=== PATIENT | male | born 1985 | race Two or more races ===

== ENCOUNTER 2024-07-08 19:27 | Emergency (ER) | payer SELFPAY ==
[~2024-07-08] VITALS: Ht 170.2 cm; Wt 123.0 kg
--- NOTE | 2024-07-08 19:59 | ED.PDOC ---
HPI (NEURO) HPI Comments HPI: Poor Historian. HPI: 38-year-old male presents with a chief complaint of left-sided headache and blurry vision x onset yesterday. Patient states that his symptoms began yesterday and had gone away after taking a nap, however, patient reports that the symptoms returned around 10:00 this morning and has subsided but recurred again later in the day so he decided to come to the ED. Patient is expressing mild blurry vision bilaterally in both eyes and a headache to the left side of his head and neck. Patient denies hitting his head or any injuries prior to onset of symptoms. . Patient mentions that he does get headaches frequently and usually take Aspirin for them, denies seeing a doctor for his headaches. Patient says the headache is associated with some nonspecific chest discomfort needles and pins like sensation. He had at least two prior episodes in the last 24 hours which subsided spontaneously without any intervention. PMHx: Headaches PSHx: Tonsillectomy Triage Vital Signs: Temp: 98.1F BP: 132/90 HR: 69 SpO2: 96% RR: 18 REVIEW OF SYSTEMS: CONSTITUTIONAL: Denies acute: fever, diaphoresis, chills, generalized weakness. HEAD: Denies acute: photophobia Eyes: Denies acute: Double vision, vision loss, eye pain, eye discharge. EARS: Denies acute: tinnitus, hearing loss, ear discharge, ear pain, THROAT: Denies acute: sore throat, swelling, difficulty swallowing , pain with swallowing, change in voice. NECK: Denies acute: neck pain, neck swelling, stiff neck. HEART: Denies acute : palpitations, LUNGS: Denies acute: SOB, wheezing, cough, hemoptysis ABDOMEN: Denies acute: abdominal pain, Nausea, Vomiting, diarrhea, melena , hematemesis, hematochezia SKIN: Denies acute: rash, redness, lesions, itchiness. EXTREMITIES: Denies acute: calf pain, numbness, tingling, weakness, denies pain in extremity. Denies acute: Low back pain. Neuro: Denies acute: focal neurological deficit, motor or sensory focal neurological deficit, tremors, seizure like activity, confusion, dizziness, change in mental status, loss of bowel or bladder function, cauda equina like symptoms. : Denies acute: dysuria, hematuria, flank pain, increase in urinary frequency. PSYCH: Denies acute: hallucination, suicidal ideation, homicidal ideation. PHYSICAL EXAM: General: no acute distress, awake and alert. Head: normocephalic, atraumatic. Neck: supple, trachea is midline, no swelling. Throat: Normal phonation. Eyes:, no erythema, no purulent discharge, no proptosis, no icterus. Heart: regular rate, regular rhythm, no significant murmur appreciated. Lungs: no apparent respiratory distress, Able to speak in full sentences. No wheezing, no rhonchi, no crackles. No stridors Clear to auscultation bilaterally. Abdomen: non tender to palpation, non distended, soft, no guarding, no rebound, + bowel sounds. Neuro: Awake, Alert, oriented to name, self, situation, follows commands GCS=15. Speech is normal. Skin: no petechia, no purpura, no cyanosis, non-pale, not jaundice. Lower extremities: --no - Pitting edema no deformity, no focal swelling, no calf TTP. Makes eye contact. moves all four extremities. Face: no apparent facial droop. Ambulating in the ED independently. Stroke: finger to nose cerebellar testing is intact. No pronator drift. 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 No nystagmus. No nuchal rigidity, Kernig's sign, Brudzinski's sign, no meningeal signs. Time Seen by MD: 19:49 Reviewed Notes: Medications, Allergies Information Source: Patient Mode of Arrival: Ambulatory Past Medical History PAST MEDICAL HISTORY: Denies Surgical History: Tonsillectomy Family History Family History: Reviewed,noncontributory to illness Social History Smoker: Non-Smoker Alcohol: Denies ETOH Use Drugs: Denies Drug Use Lives In: Home Was a procedure done? Was a procedure done?: No Differential Diagnosis (SZ) Seizure: N/A CVA: Ceja's Palsy, CVA, Delirium Tremens, DKA, Drug Overdose, Electrolyte Imbalance, Encephalopathy, Hypoglycemia, Hypoxemia, Mass Lesion, Respiratory Failure, SAH, TIA Headache: Cluster, Migraine, Post Lumber Puncture, Closed Head Injury, Carbon Monoxide Toxicity, CVA, Epidural Hemorrhage, Intracerebral Hemorrhage, Subarachnoid Hemorrhage, Subdural Hemorrhage, Mass Lesion, Meningitis, Post- Traumatic, Sinusitis, Trigeminal Neuralgia, Other (DDX include Sinusitis, migraine, meningitis, hypertension, intracranial mass/bleed, stroke, radiculopathy, vertebrobasillary insufficiency, cephalgia, pseudotumor cerebri, cerebellar ischemia/infarct, carotid stenosis, lacunar infarct, vertebral/carotid artery dissection, hydrocephalus, temporal arteritis, dura venous sinus thrombosis.) X-Ray, Labs, Meds, VS Vital Signs Date Time Temp Pulse Resp B/P (MAP) Pulse Ox O2 Delivery O2 Flow Rate FiO2 07/09/24 01:20 97.9 78 18 120/81 (94) 97 97.9 07/09/24 00:39 97.9 78 16 121/79 (93) 97 97.9 07/09/24 00:05 98.1 69 18 132/90 96 0.0 21 98.1 07/08/24 19:55 98.1 69 18 132/90 (104) 96 07/08/24 19:49 74 Lab Test 07/09/24 00:26 07/08/24 23:08 07/08/24 21:42 07/08/24 20:18 Range/Units Influenza Type A Antigen Negative Negative Influenza Type B Antigen Negative Negative SARS-CoV-2 Antigen (Rapid) Negative NEGATIVE Troponin I High Sensitivity < 3 L < 3 L < 3 L </=54 ng/L Erythrocyte Sedimentation Rate 16 0-20 mm/hr Prothrombin Time 10.5 9.3-11.8 sec Prothrombin Time INR 0.99 0.9-1.15 Activated Partial Thromboplast Time 26.6 24.5-34.5 SEC Sodium Level 139 136-145 mmol/L Potassium Level 4.1 3.5-5.1 mmol/L Chloride Level 102 98-107 mmol/L Carbon Dioxide Level 27 20-31 mmol/L Anion Gap 10 5-15 Blood Urea Nitrogen 10 9-23 mg/dL Creatinine 0.99 0.700-1.30 mg/dL Glomerular Filtration Rate Calc 99 >90 mL/min BUN/Creatinine Ratio 10.1 10.0-20.0 Serum Glucose 87 74-106 mg/dL Calcium Level 10.2 8.7-10.4 mg/dL Magnesium Level 2.5 1.6-2.6 mg/dL Total Bilirubin 0.6 0.2-1.0 mg/dL Aspartate Amino Transferase (AST) 25 13-40 U/L Alanine Aminotransferase (ALT) 50 H 7-40 U/L Alkaline Phosphatase 75 46-116 U/L Total Protein 8.0 5.7-8.2 g/dL Albumin 5.3 H 3.2-4.8 g/dL Test 07/08/24 20:00 07/08/24 19:48 07/08/24 19:47 Range/Units Lactic Acid Level 1.4 0.4-2.0 mmol/L White Blood Count 7.2 4.4-10.8 10^3/uL Red Blood Count 5.24 4.5-5.90 10^6/uL Hemoglobin 15.3 13.5-17.5 g/dL Hematocrit 45.7 41.0-53.0 % Mean Corpuscular Volume 87.2 80.0-100.0 fL Mean Corpuscular Hemoglobin 29.2 28.0-32.0 pg Mean Corpuscular Hemoglobin Concent 33.5 32.0-36.0 g/dL Red Cell Distribution Width 15.0 H 11.8-14.3 % Platelet Count 262 140-450 10^3/uL Mean Platelet Volume 8.3 6.9-10.8 fL Neutrophils (%) (Auto) 51.8 37.0-80.0 % Lymphocytes (%) (Auto) 37.7 10.0-50.0 % Monocytes (%) (Auto) 9.3 0.0-12.0 % Eosinophils (%) (Auto) 1.2 0.0-7.0 % Basophils (%) (Auto) 0.0 0.0-2.0 % Neutrophils # (Auto) 3.7 1.6-8.6 10 ^3/uL Lymphocytes # (Auto) 2.7 0.4-5.4 10 ^3/uL Monocytes # (Auto) 0.7 0-1.3 10 ^3/uL Eosinophils # (Auto) 0.1 0-0.8 10 ^3/uL Basophils # (Auto) 0 0-0.2 10 ^3/uL Nucleated Red Blood Cells 0.1 % POC Glucose 94 70-106 mg/dl PATIENT: MORALESSTUART JHAVERIACCT: [id number]: [id number] : 1985 LOC: ER ROOM / BED: / AGE / SEX: 38 / M ADM STATUS: REG ER SERVICE 53 ORDERING PHYSICIAN: ROHAN BLUE DO PROCEDURE(s): [place] - ANGIO HEAD/Neck REASON: L faustin, neuro complaints, cp ORDER NUMBER(s): [id number], ACCESSION NUMBER(s): [id number] EXAM: CT ANGIO HEAD/NECK CLINICAL HISTORY: L faustin, neuro complaints, cp TECHNIQUE: CT angiogram of the head and neck was performed without and with intravenous contrast. [Contrast Qty] ml of [Contrast] was administered in travenously. 3D MIP reconstructed images were created and archived on the PACS system. This exam was performed according to our departmental dose optimization program. Up-to-date CT equipment and radiation dose reduction techniques are utilized as appropriate. [Radimetrics Exposure Report] COMPARISON: None FINDINGS: CTA head: The ventricles and subarachnoid spaces are normal in size and configuration. The ang white matter interfaces are maintained There is no midline shift or mass effect. There is no evidence of acute intracranial hemorrhage. The basal cisterns are patent. The calvarium is intact. Aneurysmal dilatation of the left supraclinoid ICA with the aneurysm measuring 6.6 x 3.0 mm on series 5 image 198 The distal internal carotid, vertebral, and basilar arteries are patent without focal narrowing or occlusion. The anterior, middle, and posterior cerebral arteries are patent without focal narrowing. No arteriovenous malformation is identified. CTA neck: The aortic arch vessel origins are widely patent. The common carotid and cervical portions of the internal carotid and vertebral arteries are patent without focal narrowing according to NASCET criteria. No aneurysm, AVM, or dissection is identified. The cervical soft tissues are unremarkable. The paranasal sinus and mastoid air cells are clear aside from moderate to marked mucosal thickening of the left maxillary sinus bilateral ethmoid air cells and mild mucosal thickening of the bilateral frontal and right maxillary sinuses. The lung apices are clear. IMPRESSION: 1. No acute intracranial abnormality. 2. Widely patent intracranial arteries without large vessel occlusion, high- grade stenosis, dissection, or AVM. 3. Aneurysm of the left supraclinoid ICA with the aneurysm measuring 6.6 x 3.0 mm. ATED BY: MICHELLE VERA MD DICTATED DATE/TIME: 07/08/242147 SIGNED BY: MICHELLE VERA MD SIGNED DATE/TIME: 07/08/242147 PATIENT: STUART NG ACCT: [id number] UNIT: [id number] : 1985 LOC: ER ROOM / BED: / AGE / SEX: 38 / M ADM STATUS: REG ER SERVICE 53 ORDERING PHYSICIAN: ROHAN BLUE DO PROCEDURE(s): CXRP - CHEST PORTABLE REASON: FAUSTIN, cp ORDER NUMBER(s): [id number], ACCESSION NUMBER(s): [id number] CHEST RADIOGRAPH Indication: FAUSTIN, cp Technique: Single frontal view of the chest was obtained Comparison: None FINDINGS: Lines and Tubes: None Lungs: Minimal bilateral lower lung zone opacities. Pleura: No effusion. No pneumothorax. Cardiomediastinal contours: Unremarkable Bones: No acute osseous abnormality. IMPRESSION: Bilateral lower lung zone atelectasis with early pneumonia not excluded. ATED BY: SHONA SMILEY DO DICTATED DATE/TIME: 07/08/242049 SIGNED BY: SHONA SMILEY DO SIGNED DATE/TIME: 07/08/242049 Time of 1ST Reevaluation: 20:19 Reevaluation 1ST: Unchanged Time of 2ND Reevaluation: 23:18 (The neurologist evaluated the patient at bedside. He recommends transfer the patient to higher level of care for brain aneurysm. Patient has no acute focal neurological deficits accept what is shan cribed in HPI in V2 distribution in the left side. No further recommendation by our neurology team.) Time of 3RD Reevaluation: 00:12 (The case was discussed with the transfer higher level of care team (HPI, physical exam, labs and diagnostic tests that were available at the time of disposition, ED course, treatment plan) on the phone. They agreed to accept the patient to their facility for higher level of care and further evaluation and treatment of the patient's presentation and fin dings. Receiving ER physician is Dr. Holland. ) Patient Education/Counseling: Diagnosis, Treatment Family Education/Counseling: Diagnosis, Treatment Comments states patient has been having multiple headaches in the past but this was never diagnosed before. Patient has complained to his in the past a feels that his brain is swollen. Patient presented with the above HPI.---neurological/cardiac---workup was initiated. patient was found with the above mentioned diagnosis. the following medications were ordered: please refer to order lists of meds and tests obtained by myself Dr. Blue. Patient ED course and VS have been stabilized. Patient has been reassessed in the ED and remained in a stable condition. Pertinent incidental findings were discussed with the patient and/or family. Patient/family voices understanding and is agreeable with plan. Patient has been observed in the ED adequate length of time to insure improvement/stability. Escalation of care considered: Consideration of escalation to observation or admission neurology team was consulted who came and evaluated the patient here in the ED. they recommend transfer the patient to higher level of care. Patient was transferred to higher level of care. All the reports of any imaging studies that were ordered by myself were reviewed by myself. Departure 1 Departure Time of Disposition: 23:05 Impression: Primary Impression: Brain aneurysm Additional Impressions: Headache Chest pain Facial neurological complaint Disposition: 02 SHORT TERM HOSPITAL Admit to: Tele Condition: Guarded Discharged With: Self Critical Care Note Critical Care Time?: Yes (90 min-critical care time only) I personally scribed for ROHAN BLUE DO ([email or web address]) on 07/08/24 at 19:59. Electronically submitted by Chris Jacobs ([email or web address]). I personally scribed for ROHAN BLUE DO ([email or web address]) on 07/08/24 at 22:09. Electronically submitted by Chris Jacobs [email or web address]). ROHAN BLUE DO Jul 08, 2024 19:59
[2024-07-08 20:37] LABS: Basophils # (auto) 0 10 ^3/uL (0-0.2); Eosinophils # (auto) 0.1 10 ^3/uL (0-0.8); Eosinophils % (auto) 1.2 % (0.0-7.0); Hematocrit 45.7 % (41.0-53.0); Hemoglobin 15.3 g/dL (13.5-17.5); Lymphocytes # (auto) 2.7 10 ^3/uL (0.4-5.4); Lymphocytes % (auto) 37.7 % (10.0-50.0); Mean Corpuscular Hemoglobin 29.2 pg (28.0-32.0); Mean Corpuscular Hgb Conc. 33.5 g/dL (32.0-36.0); Mean Corpuscular Volume 87.2 fL (80.0-100.0); Monocytes # (auto) 0.7 10 ^3/uL (0-1.3); Monocytes % (auto) 9.3 % (0.0-12.0); Neutrophils # (auto) 3.7 10 ^3/uL (1.6-8.6); Neutrophils % (auto) 51.8 % (37.0-80.0); Nucleated Red Blood Cells % 0.1 %; Platelet Count (auto) 262 10^3/uL (140-450); Red Blood Cells 5.24 10^6/uL (4.5-5.90); White Blood Cell 7.2 10^3/uL (4.4-10.8)
--- NOTE | 2024-07-08 20:52 | DVH ---
CHEST RADIOGRAPH Indication: FAUSTIN, cp Technique: Single frontal view of the chest was obtained Comparison: None FINDINGS: Lines and Tubes: None Lungs: Minimal bilateral lower lung zone opacities. Pleura: No effusion. No pneumothorax. Cardiomediastinal contours: Unremarkable Bones: No acute osseous abnormality. IMPRESSION: Bilateral lower lung zone atelectasis with early pneumonia not excluded.
[2024-07-08 20:53] LABS: Alkaline Phosphatase 75 U/L (46-116); Anion Gap 10 (5-15); Aspartate Aminotransferase 25 U/L (13-40); BUN/Creatinine Ratio 10.1 (10.0-20.0); Blood Urea Nitrogen 10 mg/dL (9-23); Calcium 10.2 mg/dL (8.7-10.4); Carbon Dioxide 27 mmol/L (20-31); Chloride 102 mmol/L (98-107); Glucose 87 mg/dL (74-106); Magnesium 2.5 mg/dL (1.6-2.6); Potassium 4.1 mmol/L (3.5-5.1); Sodium 139 mmol/L (136-145)
[2024-07-08 20:54] LABS: Bilirubin, Total 0.6 mg/dL (0.2-1.0)
[2024-07-08 20:55] LABS: INR 0.99 (0.9-1.15); Partial Thromboplastin Time 26.6 SEC (24.5-34.5); Prothrombin Time 10.5 sec (9.3-11.8)
[2024-07-08 21:04] LABS: Alanine Aminotransferase 50 U/L (7-40); Albumin 5.3 g/dL (3.2-4.8)
[2024-07-08] MEDS ORDERED: cefTRIAXone 1GM/50ML D5W 50 ML IV ONE (21:15)
[2024-07-08 21:36] LABS: Erythrocyte Sedimentation Rate 16 mm/hr (0-20)
--- NOTE | 2024-07-08 21:50 | DVH ---
EXAM: CT ANGIO HEAD/NECK CLINICAL HISTORY: L campbell, neuro complaints, cp TECHNIQUE: CT angiogram of the head and neck was performed without and with intravenous contrast. [Co ntrast Qty] ml of [Contrast] was administered intravenously. 3D MIP reconstructed images were created and archived on the PACS system. This exam was performed according to our departmental dose optimiza tion program. Up-to-date CT equipment and radiation dose reduction techniques are utilized as appropr iate. [Radimetrics Exposure Report] COMPARISON: None FINDINGS: CTA head: The ventricles and subarachnoid spaces are normal in size and configuration. The ang white matter in terfaces are maintained There is no midline shift or mass effect. There is no evidence of acute intra cranial hemorrhage. The basal cisterns are patent. The calvarium is intact. Aneurysmal dilatation of the left supraclinoid ICA with the aneurysm measuring 6.6 x 3.0 mm on series 5 image 198 The distal internal carotid, vertebral, and basilar arteries are patent without focal na rrowing or occlusion. The anterior, middle, and posterior cerebral arteries are patent without focal narrowing. No arteriovenous malformation is identified. CTA neck: The aortic arch vessel origins are widely patent. The common carotid and cervical portions of the int ernal carotid and vertebral arteries are patent without focal narrowing according to NASCET criteria. No aneurysm, AVM, or dissection is identified. The cervical soft tissues are unremarkable. The paranasal sinus and mastoid air cells are clear aside from moderate to marked mucosal thickening of the left maxillary sinus bilateral ethmoid air cells a nd mild mucosal thickening of the bilateral frontal and right maxillary sinuses. The lung apices are clear. IMPRESSION: 1. No acute intracranial abnormality. 2. Widely patent intracranial arteries without large vessel occlusion, high-grade stenosis, dissectio n, or AVM. 3. Aneurysm of the left supraclinoid ICA with the aneurysm measuring 6.6 x 3.0 mm.
--- NOTE | 2024-07-08 22:36 | DVHINCON2 ---
Date of service: Jul 08, [address] Barcenas Reason for Consultation Neuro complaints History of Present Illness Mr. Urban Jasso is a 38 years old right-handed gentleman with a history of obesity, but otherwise healthy. He came to the hospital on 07/08/2024 with a chief company of blurry vision. At this time, he is alert and fully oriented, but he is not a good historian, with his bilingual girlfriend help, I obtained the following history On 07/07/2024, the patient was developed blurry vision in whole visual field, which one eye covered it was time, he noticed the blurred vision was bilateral, with the left eye more affected; around 11:00 a.m. on 07/08/2024, he developed double vision lasted for about 10 minutes, and then later, the vision blurry problem resolved Since the afternoon on 07/07/2024, he developed constant numbness in the left infraorbital region, the problem still persists In the afternoon of 07/07/24, he developed numbness in left arm, the problem resolved in the later afternoon on 07/08/2024 Since 07/07/2024, he has general weakness He was reports pressure feeling in the chest He snores, his girlfriend reports symptoms of sleep apnea, he was not always refreshed on waking up in the morning, he sometimes has excessive sleepiness and fatigue during the daytime CBC, 07/08/2024: Unremarkable ESR, 07/08/2019 5:16 a.m. CMP, 07/08/2024: Unremarkable Chest x-ray, 07/08/2024: Bilateral lower lung zone atelectasis with early pneumonia not excluded.ilateral lower lung zone atelectasis with early pneumonia not excluded. CT head, neck, 07/08/2024: 1. No acute intracranial abnormality. 2. Widely patent intracranial arteries without large vessel occlusion, high-grade stenosis, dissection, or AVM. 3. Aneurysm of the left supraclinoid ICA with the aneurysm measuring 6.6 x 3.0 mm Past Medical History Obesity, he denies a history of hypertension, diabetes or other major medical problems Past Surgical History Tonsillectomy Family History No major medical problems Social History He does not smoke, no history of alcohol or recreational substance abuse Allergies: Coded Allergies: No Known Drug Allergy (Verified Allergy, Unknown, 07/08/24) Review of Systems As above, the other systems are negative Vital Signs Vital Signs Date Time Temp Pulse Resp B/P (MAP) Pulse Ox O2 Delivery O2 Flow Rate FiO2 07/08/24 19:55 98.1 69 18 132/90 (104) 96 Physical Exam GENERAL EXAM: General: the patient is well developed and nourished. No acute distress. HEENT: Normocephalic, neck is supple, no carotid bruits. No mass. RESPIRATORY: Normal respiratory effort with symmetrical lung expansion. Lungs clear to auscultation. CARDIOVASCULAR: Regular rate and rhythm with no murmurs. S1, S2. ABDOMEN: Soft, nontender, normal bowel sound NEUROLOGICAL: MENTAL STATUS: Awake and alert. Oriented to person, place, time and general circumstances. Poor historian SPEECH, LANGUAGE, HIGHER CORTICAL FUNCTION: no aphasia or dysathria. CRANIAL NERVES: #2: Intact visual yousif to confrontation. The optic discs were sharp. #3,4,6: Pupils are equal, round and reactive. EOMs full and conjugate. No nystagmus. #5: Diminished pinprick and light touch in the small area in the left infraorbital region. Mandibular strength intact. #7: Facial muscles symmetrical and strength intact. #8: Hearing grossly normal to voice. #9,10: Uvula and soft palate rise in the midline. Swallow and voice are normal. #11: Trapezius and sternomastoid strength intact bilaterally. #12: Tongue midline. No fasciculations or atrophy. SENSATION: Sensation to touch and pinprick is normal. MOTOR: Normal tone in the upper and lower extremity. Normal muscle bulk. No fasciculations. No abnormal movements or posturing. Muscle strength of the major groups in the upper extremities is 5/5. Muscle strength of the major groups in the lower extremities is 5/5. REFLEXES: Deep tendon reflexes normal and symmetrical. No pathological reflexes. CEREBELLAR/COORDINATION: Finger to nose and heel to carbone are normal bilaterally. GAIT/STATION: Unremarkable Labs/Diagnostic Data Labs Test 07/08/24 21:42 07/08/24 20:18 07/08/24 20:00 07/08/24 19:48 Range/Units Erythrocyte Sedimentation Rate 16 0-20 mm/hr Prothrombin Time 10.5 9.3-11.8 sec Prothrombin Time INR 0.99 0.9-1.15 Activated Partial Thromboplast Time 26.6 24.5-34.5 SEC Sodium Level 139 136-145 mmol/L Potassium Level 4.1 3.5-5.1 mmol/L Chloride Level 102 98-107 mmol/L Carbon Dioxide Level 27 20-31 mmol/L Anion Gap 10 5-15 Blood Urea Nitrogen 10 9-23 mg/dL Creatinine 0.99 0.700-1.30 mg/dL Glomerular Filtration Rate Calc 99 >90 mL/min BUN/Creatinine Ratio 10.1 10.0-20.0 Serum Glucose 87 74-106 mg/dL Calcium Level 10.2 8.7-10.4 mg/dL Magnesium Level 2.5 1.6-2.6 mg/dL Total Bilirubin 0.6 0.2-1.0 mg/dL Aspartate Amino Transferase (AST) 25 13-40 U/L Alanine Aminotransferase (ALT) 50 H 7-40 U/L Alkaline Phosphatase 75 46-116 U/L Total Protein 8.0 5.7-8.2 g/dL Albumin 5.3 H 3.2-4.8 g/dL Lactic Acid Level 1.4 0.4-2.0 mmol/L White Blood Count 7.2 4.4-10.8 10^3/uL Red Blood Count 5.24 4.5-5.90 10^6/uL Hemoglobin 15.3 13.5-17.5 g/dL Hematocrit 45.7 41.0-53.0 % Mean Corpuscular Volume 87.2 80.0-100.0 fL Mean Corpuscular Hemoglobin 29.2 28.0-32.0 pg Mean Corpuscular Hemoglobin Concent 33.5 32.0-36.0 g/dL Red Cell Distribution Width 15.0 H 11.8-14.3 % Platelet Count 262 140-450 10^3/uL Mean Platelet Volume 8.3 6.9-10.8 fL Neutrophils (%) (Auto) 51.8 37.0-80.0 % Lymphocytes (%) (Auto) 37.7 10.0-50.0 % Monocytes (%) (Auto) 9.3 0.0-12.0 % Eosinophils (%) (Auto) 1.2 0.0-7.0 % Basophils (%) (Auto) 0.0 0.0-2.0 % Neutrophils # (Auto) 3.7 1.6-8.6 10 ^3/uL Lymphocytes # (Auto) 2.7 0.4-5.4 10 ^3/uL Monocytes # (Auto) 0.7 0-1.3 10 ^3/uL Eosinophils # (Auto) 0.1 0-0.8 10 ^3/uL Basophils # (Auto) 0 0-0.2 10 ^3/uL Nucleated Red Blood Cells 0.1 % Test 07/08/24 19:47 Range/Units POC Glucose 94 70-106 mg/dl Assessment This is a difficult consultation Paresthesia/sensory loss in the left infraorbital region, etiology unclear, needs to rule out intracranial acute pathology Sleep-related breathing disorder Obesity Acute General weakness Brain aneurysm Plan/Recommendation Monitoring Supportive treatment Telemetry UDS Lipitor profile Echocardiogram MRI head APAP in the hospital Higher level care Re: Brain aneurysm He has been advised to look for a family doctor for ongoing medical care Lifestyle discussed Prognosis: Poor This medical document was created using an electronic medical record system with [employer] computerized dictation system. Although this document has been carefully reviewed, there may still be some phonetic and typographical errors. These areas are purely typographical due to imperfections of the software programs, and do not reflect any compromise in the patient's medical care. Plan discussed with: Patient, Spouse, Other GARO ROBLERO MD Jul 08, 2024 22:36
[2024-07-09 00:05] VITALS: BP 132/90; PULSE 69; RESP 18; TEMP 98.1; O2SAT 96
[2024-07-09] MEDS: IOHEXOL 350 MG/ML 100ML IJ ONE (00:17)
[2024-07-09 01:20] VITALS: BP 120/81; PULSE 78; RESP 18; TEMP 97.9; O2SAT 97
[2024-07-09 01:23] LABS: Rapid Influenza A Negative (Negative); Rapid Influenza B Negative (Negative)
[2024-07-09 01:24] LABS: COVID19 ANTIGEN SOFIA FIA NEGATIVE (NEGATIVE)
--- NOTE | 2024-07-09 07:16 | ECG ---
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
== END 2024-07-08 23:05 | disposition short-term general hospital (02) ==
LOC: ER 19:27
DX: I67.1 Cerebral aneurysm, nonruptured (principal); R51.9 Headache, unspecified; R07.89 Other chest pain; Z98.890 Other specified postprocedural states; Z79.899 Other long term (current) drug therapy; Z20.822 Contact with and (suspected) exposure to COVID-19
CPT/HCPCS: 36415; 70496; 70498; 71045; 80053; 82962; 83605; 83735; 84484; 85025; 85610; 85652; 85730; 87426; 87804; 93005; 99285; Q9967